=== PATIENT | female | born 1990 | race Caucasian/White ===

== ENCOUNTER 2019-03-25 08:42 | Inpatient (IN) | payer OTHER ==
[2019-03-25] MEDS ORDERED: LACTATED RINGER'S 500 ML IV (09:32)
[2019-03-25] MEDS ORDERED: MISOPROSTOL 200 MCG TAB PR ×2 (10:00→15:30)
[2019-03-25] MEDS ORDERED: CARBOPROST 250 MCG INJ IM ×2 (10:00→15:30)
[2019-03-25] MEDS ORDERED: OXYTOCIN 30 UNITS/LR 500 ML IV ×3 (10:00→15:30)
[2019-03-25] MEDS ORDERED: METHYLERGONOVINE 0.2 MG INJ IM ×2 (10:00→15:30)
[2019-03-25] MEDS: LACTATED RINGER'S 1,000 ML IV ×2 (10:11→10:22)
[2019-03-25 10:24] LABS: ADD MAN DIFF? NO
[2019-03-25 10:32] LABS: BASOPHILS % 0.4 % (0.0-2.0); EOSINOPHILS % 0.2 % (0.0-7.0); HEMATOCRIT 30.7 % (37.0-47.0); HEMOGLOBIN 9.6 g/dl (12.0-16.0); LYMPHOCYTES # 1.8 10^3/ul (0.8-2.9); MEAN CORPUSCULAR HEMOGLOBIN 25.5 pg (29.0-33.0); MEAN CORPUSCULAR HGB CONC 31.3 g/dl (32.0-37.0); MEAN CORPUSCULAR VOLUME 81.6 fl (82.0-101.0); MEAN PLATELET VOLUME 10.1 fl (7.4-10.4); MONOCYTE # 0.6 10^3/ul (0.3-0.9); MONOCYTES % 7.9 % (0.0-11.0); NEUTROPHIL # 5.4 10^3/ul (1.6-7.5); NEUTROPHILS % 66.9 % (39.0-77.0); PLATELET COUNT 246 10^3/UL (140-415); RED BLOOD COUNT 3.76 10^6/ul (4.20-5.40); RED CELL DISTRIBUTION WIDTH 15.9 % (11.5-14.5)
[2019-03-25 10:38] LABS: INR 0.92; PROTIME 12.5 Sec (11.9-14.9)
[2019-03-25] MEDS ORDERED: morphine SULFATE/PF (10 MG/10 ML) INJ (10:45)
[2019-03-25] MEDS ORDERED: METOCLOPRAMIDE 10 MG INJ (10:45)
[2019-03-25] MEDS ORDERED: ONDANSETRON 4 MG INJ (10:45)
[2019-03-25] MEDS ORDERED: EPHEDrine 25 MG/5 ML SYG (10:45)
[2019-03-25] MEDS ORDERED: OXYTOCIN 10 UNIT INJ ×2 (10:45→10:46)
[2019-03-25] MEDS: CEFAZOLIN 2 GM/50 ML (PMX) 50 ML IVPB (10:46)
[2019-03-25] MEDS ORDERED: PHENYLephrine (100 MCG/ML) 10ML SYG (11:37)
[2019-03-25] MEDS: OXYTOCIN 30 UNITS/LR 500 ML IV ×3 (12:22→18:03)
[2019-03-25] MEDS ORDERED: NALOXONE (0.4 MG/ML) INJ IV (12:30)
[2019-03-25] MEDS ORDERED: DIPHENHYDRAMINE 50 MG INJ IV (12:30)
[2019-03-25] MEDS ORDERED: morphine 2 MG INJ IV ×2 (12:30)
[2019-03-25] MEDS: KETOROLAC 30 MG INJ IV (13:02)
[2019-03-25] MEDS: ONDANSETRON 4 MG INJ IV (13:22)
[2019-03-25 15:06] LABS: RAPID PLASMA REAGIN NONREACTIVE (NR)
[2019-03-25] MEDS ORDERED: METHYLERGONOVINE 0.2 MG TAB PO (15:30)
[2019-03-25] MEDS: morphine SULFATE/PF (10 MG/10 ML) INJ SPINAL (18:47)
[2019-03-25] MEDS: EPHEDrine 25 MG/5 ML SYG IV (18:48)
[2019-03-25] MEDS: SENNA/DOCUSATE NA (8.6MG/50MG) TAB PO (21:00)
[2019-03-26] MEDS: LACTATED RINGER'S 1,000 ML IV (03:27)
[2019-03-26 08:15] LABS: ADD MAN DIFF? NO
[2019-03-26 08:16] LABS: WHITE BLOOD COUNT 13.4 10^3/ul (4.8-10.8)
[2019-03-26 08:16] LABS: BASOPHILS % 0.2 % (0.0-2.0); EOSINOPHILS % 0.1 % (0.0-7.0); HEMATOCRIT 27.8 % (37.0-47.0); HEMOGLOBIN 8.8 g/dl (12.0-16.0); LYMPHOCYTES # 1.4 10^3/ul (0.8-2.9); LYMPHOCYTES % 10.4 % (15.0-51.0); MEAN CORPUSCULAR HEMOGLOBIN 25.7 pg (29.0-33.0); MEAN CORPUSCULAR HGB CONC 31.7 g/dl (32.0-37.0); MEAN CORPUSCULAR VOLUME 81.3 fl (82.0-101.0); MEAN PLATELET VOLUME 10.5 fl (7.4-10.4); MONOCYTES % 7.3 % (0.0-11.0); NEUTROPHIL # 10.9 10^3/ul (1.6-7.5); NEUTROPHILS % 81.1 % (39.0-77.0); PLATELET COUNT 243 10^3/UL (140-415); RED BLOOD COUNT 3.42 10^6/ul (4.20-5.40); RED CELL DISTRIBUTION WIDTH 16.1 % (11.5-14.5)
[2019-03-26] MEDS: SENNA/DOCUSATE NA (8.6MG/50MG) TAB PO ×2 (08:17→21:22)
[2019-03-26] MEDS: KETOROLAC 30 MG INJ IV (08:18)
[2019-03-26 08:58] LABS: ANION GAP 5 (5-13); BLOOD UREA NITROGEN 7 mg/dl (7-20); CALCIUM 8.3 mg/dl (8.4-10.2); CARBON DIOXIDE 25 mmol/L (21-31); CHLORIDE 106 mmol/L (97-110); CREATININE 0.48 mg/dl (0.44-1.00); Estimated GFR > 60 mL/min (>60); GLUCOSE 93 mg/dl (70-220); SODIUM 136 mmol/L (135-144)
[2019-03-26] MEDS ORDERED: HYDROCODONE/APAP (5/325) TAB PO ×2 (09:30)
[2019-03-26] MEDS: LANOLIN HPA 1 PKT TOP (12:27)
[2019-03-26] MEDS: IBUPROFEN 800 MG TAB PO ×2 (12:27→18:21)
[2019-03-27] MEDS: IBUPROFEN 800 MG TAB PO ×3 (03:35→21:11)
[2019-03-27] MEDS: SENNA/DOCUSATE NA (8.6MG/50MG) TAB PO ×2 (09:32→21:11)
[2019-03-27] MEDS: MAGNESIUM HYDROXIDE 30ML CUP PO (09:32)
[2019-03-27] MEDS: BISACODYL 10 MG SUPP PR (09:32)
[2019-03-27] MEDS: DIPHTH/TET/ACEL PERTUSS (ADULT) 0.5 ML VIAL IM* (16:43)
[2019-03-28 08:35] LABS: ADD MAN DIFF? NO
[2019-03-28 08:48] LABS: WHITE BLOOD COUNT 11.6 10^3/ul (4.8-10.8)
[2019-03-28 08:48] LABS: BASOPHIL # 0.1 10^3/ul (0.0-0.1); BASOPHILS % 0.4 % (0.0-2.0); EOSINOPHILS # 0.2 10^3/ul (0.0-0.5); EOSINOPHILS % 1.9 % (0.0-7.0); HEMATOCRIT 29.5 % (37.0-47.0); HEMOGLOBIN 9.1 g/dl (12.0-16.0); LYMPHOCYTES # 2.2 10^3/ul (0.8-2.9); LYMPHOCYTES % 19.3 % (15.0-51.0); MEAN CORPUSCULAR HEMOGLOBIN 25.6 pg (29.0-33.0); MEAN CORPUSCULAR HGB CONC 30.8 g/dl (32.0-37.0); MEAN CORPUSCULAR VOLUME 83.1 fl (82.0-101.0); MEAN PLATELET VOLUME 10.2 fl (7.4-10.4); MONOCYTE # 0.8 10^3/ul (0.3-0.9); MONOCYTES % 6.9 % (0.0-11.0); NEUTROPHIL # 8.1 10^3/ul (1.6-7.5); NEUTROPHILS % 70.4 % (39.0-77.0); PLATELET COUNT 287 10^3/UL (140-415); RED BLOOD COUNT 3.55 10^6/ul (4.20-5.40); RED CELL DISTRIBUTION WIDTH 16.3 % (11.5-14.5)
[2019-03-28] MEDS: MEASLES,MUMPS,RUBELLA VACCINE INJ SC* (09:00)
[2019-03-28] MEDS: SENNA/DOCUSATE NA (8.6MG/50MG) TAB PO (10:21)
== END 2019-03-28 16:03 | disposition home or self-care (01) | DRG 788 ==
LOC: L-D 08:42 → PP1 15:12
PROVIDERS: Obstetrics & Gynecology
PROC: 10D00Z1 Extraction of Products of Conception, Low, Open Approach (ICD-10-PCS; principal; 2019-03-25 10:30)
PROC: 3E033VJ Introduction of Other Hormone into Peripheral Vein, Percutaneous Approach (ICD-10-PCS; 2019-03-25 10:30)
DX: O65.5 Obstructed labor due to abnormality of maternal pelvic organs (principal); O34.211 Maternal care for low transverse scar from previous cesarean delivery; Z3A.39 39 weeks gestation of pregnancy; Z37.0 Single live birth
CPT/HCPCS: 80048; 85025; 85610; 85730; 86592; 86850; 86900; 86901; 99464